=== PATIENT | female | born 1990 | race Two or more races ===

== ENCOUNTER 2025-07-24 01:06 | Emergency (ER) | payer MEDICAID, SELFPAY ==
[2025-07-24 01:09] VITALS: BMI 37.8
[2025-07-24 02:06] VITALS: BP 147/98; PULSE 93; RESP 19; TEMP 36.7; O2SAT 98
--- NOTE | 2025-07-24 02:11 | XR_ITS ---
Examination: Pelvic ultrasound, transabdominal, complete Technique: Transabdominal ultrasound of the pelvis performed using grayscale imaging Date and time of exam: July 24, 2025, 0310 hours INDICATIONS: Onset right pelvic pain today FINDINGS: Uterus 9.3 cm endometrial stripe 0.5 cm No uterine mass or intrauterine gestation Right ovary 3.3 cm arterial flow Left ovary obscured by bowel gas IMPRESSION: No uterine mass or intrauterine gestation
--- NOTE | 2025-07-24 02:12 | PD.EDABDPN ---
ED Abdominal Pain RME/HPI General Chief Complaint: Abdominal Pain Stated complaint: RIGHT LOWER ABD PAIN RADIATING TO BACK Time seen by provider: 07/24/25 02:10 Arrival date/time: 07/24/25 01:06 RME / HPI RME / HPI narrative: See [facility] for Dr. Watt's HPI Documentation. Related Data Previous Rx's ?Medication ?Instructions ?Recorded cetirizine 10 mg tablet (Zyrtec) 10 mg PO QDAY #30 tabs 05/19/22 sodium chloride 0.65 % nasal spray 2 spray intranasal QID PRN nasal 05/19/22 aerosol (Saline Nasal) congestion #88 mL fluconazole 150 mg tablet 150 mg PO QDAY #1 tab 08/06/22 (Diflucan) fluconazole 150 mg tablet 150 mg PO .x1 #1 tab 09/06/22 (Diflucan) ondansetron HCl 4 mg tablet 4 mg PO QDAY PRN nausea and 09/06/22 vomiting #10 tabs fexofenadine 180 mg tablet 180 mg PO QDAY #30 tabs 04/25/24 (Madhuri Allergy) pseudoephedrine HCl 30 mg tablet 30 mg PO Q8HR PRN nasal congestion 04/25/24 #20 tabs cefdinir 300 mg capsule 300 mg PO BID #14 caps 07/24/25 Allergies Allergy/AdvReac Type Severity Reaction Status Date / Time No Known Allergies Allergy Verified 07/24/25 01:08 Review of Systems Review of Systems Systems Reviewed: All systems reviewed, normal except as documented Past Medical History Past Medical History GASTROINTESTINAL: Positive Gastrointestinal Disorders Surgical History SURGICAL: Positive Section ED Exam Narrative Physical exam: See [facility] for Dr. Watt's Physical Exam Documentation. Course Quality Measures none Orders Category Date Time Status Saline [Insert IV] NOW Care 07/24/25 02:11 Completed US pelvic complete Stat Exams 07/24/25 02:11 Completed Bilirubin,Direct Stat Lab 07/24/25 02:17 Completed CBC Stat Lab 07/24/25 02:17 Completed CMP [Comprehensive Metabolic Panel] Stat Lab 07/24/25 02:17 Completed HCG,Qualitative Serum Stat Lab 07/24/25 02:17 Completed Magnesium Stat Lab 07/24/25 02:17 Completed TSH [Thyroid Stimulating Hormone] Stat Lab 07/24/25 02:17 Completed UA, C/S IF [Urinalysis, C/S if Indicated] Stat Lab 07/24/25 02:46 Completed Urine Culture Stat Lab 07/24/25 02:46 Completed Ketorolac Inj [Toradol Inj] Med 07/24/25 02:11 Discontinued 30 mg IVP X1 ONE Ondansetron Inj [Zofran Inj] Med 07/24/25 02:11 Discontinued 4 mg IVP X1 ONE Sodium Chloride 0.9% 1000 ml [Ns] 1,000 ml Med 07/24/25 02:11 Discontinued IV 999 mls/hr cefTRIAXone/D5w 1gm IV premix [Rocephin/D5w 1gm IV Med 07/24/25 03:55 Discontinued premix] 1 gm in 50 ml IV X1 Vital Signs Vital signs: Vital Signs Temperature 98.1 F 07/24/25 02:06 Pulse Rate 93 07/24/25 02:06 Respiratory Rate 19 07/24/25 02:06 Blood Pressure 147/98 H 07/24/25 02:06 Pulse Oximetry (%) 98 07/24/25 02:06 Oxygen Delivery Method Room Air 07/24/25 02:06 Abdominal Pain MDM MDM Narrative MDM Narrative:: This section includes all my notes and documentations, including HPI, PE, and ED course. Loe Watt MD HPI: 34 y/o female presents with right sided lower abdominal pain for a couple of days. No fever or chills. Occasional nausea. Some urinary frequency. No hematuria. No other complaints. ROS: All negative except as documented in HPI. Physical Exam: General: Alert and oriented. No acute distress when remaining still. Eyes: Conjunctivae and lids clear. ENT: No nasal congestion. Neck: Supple. Heart: RRR. Lungs: No respiratory distress. Good air movement. No rhonchi, wheezing, rales. Abdomen: Soft with equivocal right sided pelvic tenderness. Normal bowel sounds. No distension. No rebound or guarding. Back: No CVA tenderness. Skin: Warm and dry. Neuro: Alert and oriented X 3. I reviewed all diagnostic test results: My review of the Pelvis US report is NAD. Blood tests are unremarkable. UA showed positive leukocyte esterase, 6 RBC, 16 WBC, and Bacteria. At this point, diagnoses include: UTI Ovarian Cyst Treatment here included: IVF Toradol 30 mg IV Zofran 4 mg IV Rocephin 1 gram IV She felt much better. Recommended outpatient treatment. Based on my best medical judgment, made decision no further evaluation or treatment indicated at this time. Patient understands and agrees to the discharge instructions customized and printed, see below. Discharge instructions from Dr. Watt: 1. After evaluation, you have UTI (see attached handout). 2. Take cefdinir to kill the germs causing the infection. 3. For good hydration, increase oral fluid and maintain clear urine. If dark or yellow, increase oral fluid. 4. You also have ovarian cyst. -- In young females, it is normal to have ovarian cysts (sacs of fluid) that come and go depending on the menstruation.? If a cyst ruptures, it can cause pain until your body reabsorbs the fluid. Large cysts can also cause pain. -- Apply ice or heat if helpful.? Tylenol/ibuprofen as needed. 5. See a private doctor on 07/26/2025 for recheck. Ask to review all test results and official radiology reports, to make sure you receive all necessary follow-ups and monitoring, including final urine culture results from today. Ask for a referral to see advertising [employer] to evaluate your ovarian cysts. 6. Seek immediate medical care with worsening, fever, or with any concerns. Leo Watt MD Patient data External records reviewed:: [facility] previous records (Reviewed prior ED records from 04/25/24. Patient was seen for Acute dysfunction of left eustachian tube.) Clinical information provided by:: patient Social determinants that could affect healthcare access:: none Patient has the following chronic illnesses:: None reported. How is presenting disease/condition affected by chronic disease/condition?: no chronic disease Evaluation data The following diagnostics were reviewed and interpreted by me:: lab results and radiology exam(s) Lab and/or radiology exams considered but not ordered:: None Interpretation Summary: I reviewed all diagnostic test results: My review of the Pelvis US report is NAD. Blood tests are unremarkable. UA showed positive leukocyte esterase, 6 RBC, 16 WBC, and Bacteria. Medications / Prescriptions Medications or Prescriptions considered but not ordered:: None Medication administrations:: Medication Administration History Discontinued Medications Sodium Chloride (Ns) 1,000 mls @ 999 mls/hr IV .Q1H1M ONE Stop: 07/24/25 03:11 Last Infusion: 07/24/25 04:09 Dose: Infused Documented By: Admin: 07/24/25 02:42 Dose: 999 mls/hr Documented By: ALEXANDRE Ceftriaxone Sodium/Dextrose (Rocephin/D5w 1gm Iv Premix) 1 gm in 50 mls @ 100 mls/hr IV X1 ONE Stop: 07/24/25 04:24 Last Infusion: 07/24/25 04:47 Dose: Infused Documented By: Admin: 07/24/25 04:14 Dose: 100 mls/hr Documented By: KYA Ketorolac Tromethamine (Ketorolac Inj 30 Mg/Ml Vial) 30 mg IVP X1 ONE Stop: 07/24/25 02:12 Last Admin: 07/24/25 02:41 Dose: 30 mg Documented By: ALEXANDRE Ondansetron HCl (Ondansetron Inj 2 Mg/Ml Inj 2 Ml) 4 mg IVP X1 ONE; Protocol Stop: 07/24/25 02:12 Last Admin: 07/24/25 02:42 Dose: 4 mg Documented By: ALEXANDRE Treatment here included: IVF Toradol 30 mg IV Zofran 4 mg IV Rocephin 1 gram IV Consultations Consultation(s) initiated? (list below): No Diagnosis Differential diagnosis abdominal pain: constipation, endometriosis, gastroenteritis and other (UTI, Cystitis, Pyelonephritis) Most likely diagnosis given after review of the tests above:: UTI Ovarian Cyst Admission Indicated Admission indicated?: not indicated Explain why admission is indicated or not indicated:: With significant improvement and no condition needing emergent intervention, there was no indication for admission. Admission Request Was there a request for admission?: No Disposition Plan Disposition Plan: Discharge Discharge Attestation Discharge Attestation: The patient and all family members were given an opportunity to ask questions and understood the discharge instructions. Discharge instructions specifically effects, indications for sooner follow up or return to the emergency department, and the expected course of current diagnosis. Patient condition: Stable Discharge Plan Plan Patient Disposition: HOME (Self Care) Prescriptions/Referrals Prescriptions/Med Rec: New cefdinir 300 mg capsule 300 mg PO BID Qty: 14 0RF No Action cetirizine [Zyrtec] 10 mg tablet 10 mg PO QDAY Qty: 30 0RF Saline Nasal 0.65 % aerosol,spray 2 spray intranasal QID PRN (Reason: nasal congestion) Qty: 88 0RF ondansetron HCl 4 mg tablet 4 mg PO QDAY PRN (Reason: nausea and vomiting) Qty: 10 0RF fluconazole [Diflucan] 150 mg tablet 150 mg PO .x1 Qty: 1 0RF Rx Instructions: Take after finishing antibiotics. Don't take while taking zofran fluconazole [Diflucan] 150 mg tablet 150 mg PO QDAY Qty: 1 0RF fexofenadine [Madhuri Allergy] 180 mg tablet 180 mg PO QDAY Qty: 30 0RF pseudoephedrine HCl 30 mg tablet 30 mg PO Q8HR PRN (Reason: nasal congestion) Qty: 20 0RF Problem List Clinical Impression: UTI (urinary tract infection), Ovarian cyst Patient/Caregiver Discharge Instructions Discharge Activity: activity as tolerated Education Materials: ED Ovarian Cyst, ED CYSTITIS Female Adult Additional Instructions: Discharge instructions from Dr. Watt: 1. After evaluation, you have UTI (see attached handout). 2. Take cefdinir to kill the germs causing the infection. 3. For good hydration, increase oral fluid and maintain clear urine. If dark or yellow, increase oral fluid. 4. You also have ovarian cyst. -- In young females, it is normal to have ovarian cysts (sacs of fluid) that come and go depending on the menstruation.? If a cyst ruptures, it can cause pain until your body reabsorbs the fluid. Large cysts can also cause pain. -- Apply ice or heat if helpful.? Tylenol/ibuprofen as needed. 5. See a private doctor on 07/26/2025 for recheck. Ask to review all test results and official radiology reports, to make sure you receive all necessary follow-ups and monitoring, including final urine culture results from today. Ask for a referral to see advertising [employer] to evaluate your ovarian cysts. 6. Seek immediate medical care with worsening, fever, or with any concerns. Print Language: Bulgarian Stand Alone Forms: Margret Award Info., Patient Portal Info Letter
[2025-07-24 02:36] LABS: Basophils # (Auto) 0.1 Thou/mm3 (0.0-0.2); Basophils % (Auto) 1 % (0-2.5); Eosinophils # (Auto) 0.2 Thou/mm3 (0.0-0.5); Eosinophils % (Auto) 2 % (0-10); Hematocrit 39.7 % (36.0-46.0); Hemoglobin 13.8 g/dL (12.0-16.0); Immature Granulocytes Auto 0.03 Thou/mm3 (0.00-0.00); Lymphocytes # (Auto) 2.6 Thou/mm3 (1.0-4.8); Lymphocytes % (Auto) 31 % (10-50); Mean Corpuscular HGB Conc 34.8 g/dl (31.0-37.0); Mean Corpuscular Hemoglobin 29.6 pg (25.0-35.0); Mean Corpuscular Volume 85 fL (80-100); Monocytes # (Auto) 0.8 Thou/mm3 (0.0-0.8); Monocytes % (Auto) 9 % (0-12); Neutrophils # (Auto) 4.9 Thou/mm3 (1.8-7.7); Neutrophils % (Auto) 57 % (37-80); Nucleated Red Blood Cell # 0.00 Thou/mm3 (0.00-0.00); Nucleated Red Blood Cell % 0 /100 WBC (0); Platelet Count 246 Thou/mm3 (140-440); RDW Standard Deviation 39.9 fL (36.4-46.3); Red Blood Count 4.66 Miln/mm3 (4.00-5.20); White Blood Count 8.6 Thou/mm3 (3.6-11.0)
[2025-07-24] MEDS: KETOROLAC INJ 30 MG/ML VIAL IVP (02:41)
[2025-07-24] MEDS: SODIUM CHLORIDE 0.9% 1000 ML 1,000 ML 999 ML IV (02:42)
[2025-07-24] MEDS: ONDANSETRON INJ 2 MG/ML INJ 2 ML 4 MG IVP (02:42)
[2025-07-24 02:44] VITALS: BP 147/98; PULSE 82; RESP 18; TEMP 36.7; O2SAT 96
[2025-07-24 02:46] LABS: HCG,Qualitative Serum Negative
[2025-07-24 02:57] LABS: Alanine Aminotransferase 34 U/L (10-49); Albumin, Serum 4.4 gm/dL (3.5-5.0); Albumin/Globulin Ratio 1.6 (1.2-2.2); Alkaline Phosphatase 80 U/L (46-116); Anion Gap 11 (7-16); Aspartate Amino Transferase 23 U/L (0-34); BUN/Creatinine Ratio 9 Ratio (12-20); Bilirubin,Direct 0.1 mg/dL (0.0-0.3); Bilirubin,Total 0.4 mg/dL (0.3-1.2); Blood Urea Nitrogen 8 mg/dL (9-23); Calcium 8.8 mg/dL (8.3-10.6); Calcium (Corrected) 8.8 mg/dL (8.5-10.1); Carbon Dioxide 25.7 mMol/L (20.0-31.0); Chloride 107 mMol/L (98-107); Creatinine (Component) 0.9 mg/dL (0.6-1.3); Estimated Creatinine Clearance 103.0 mL/min (>60); Globulin 2.8 gm/dL (2.3-3.5); Glucose 122 mg/dL (74-106); Magnesium 2.0 mg/dL (1.6-2.6); Osmolality,Calculated 286 (275-295); Potassium 3.5 mMol/L (3.4-5.1); Sodium 144 mMol/L (136-145); Thyroid Stimulating Hormone 0.97 uIU/mL (0.55-4.78); Total Protein 7.2 gm/dL (5.7-8.2); eGFR > 60 See Note
[2025-07-24 03:17] LABS: Collection Type, Urine Clean Catch
[2025-07-24 03:35] LABS: Amorphous Crystals,Urine Present (Absent); Bacteria,Urine Rare; Bilirubin,Urine Negative (Negative); Blood,Urine Negative (Negative); Clarity,Urine Clear (Clear/Hazy); Color,Urine Lt-Yellow (Lt Yel-Yel); Glucose, Urine Negative (Negative); Hyaline Casts,Urine < 1 /hpf (0-1); Ketones,Urine Negative (Negative); Leukocyte Esterase,Urine Positive (Negative); Nitrite,Urine Negative (Negative); PH,Urine 6.5 (5.0-7.0); Protein,Urine Trace (Neg - Trace); RBC,Urine 6 /hpf (0-3); Specific Gravity,Urine 1.027 (1.001-1.035); Squamous Epithelial Cell,Urine 4 /hpf (0-5); Urobilinogen,Urine Negative mg/dL (0.0-1.0); WBC,Urine 16 /hpf (0-5)
[2025-07-24 03:36] LABS: Culture Indicated,Urine Yes
[2025-07-24] MEDS: cefTRIAXone/D5w 1gm IV premix 1 GM/50 ML BAG IV (04:14)
--- NOTE | 2025-07-24 04:43 | PRELIM_ITS ---
Pelvic ultrasound (transabdominal) with Doppler and wave Doppler spectral analysis. July 24, 2025 0310 hours Clinical history: Right pelvic pain. Technique: Real-time, grayscale, transabdominal pelvic ultrasound was performed using Duplex scanning including arterial inflow, venous outflow, color and spectral Doppler. Comparison: None available at the time of this report. Findings: The uterus is normal in size measuring 9.3 x 5.2 x 5.7 cm. Cystic lesions in the body of the uterus measure 1.2 x 1.0 x 1.1 cm and 1.2 x 1.6 x 1.2 cm. The endometrium is unremarkable and measures 0.5 cm. The right ovary measures 3.3 x 2.4 x 2.8 cm and is unremarkable. The left ovary is not visualized. The right ovary demonstrates color flow and spectral waveforms on Doppler evaluation. There is no adnexal mass. There is no free fluid on the submitted images. Impression: Cystic lesions in the body of the uterus, consider correlation with MRI for further evaluation. The left ovary is not visualized, consider correlation with MRI, if clinically indicated. No evidence of right ovarian torsion. Report Electronically Signed By: Gennaro Briscoe 07/24/2025 4:42:51 AM [EST]
[2025-07-24 04:48] VITALS: BP 136/86; PULSE 57; RESP 18; TEMP 36.7; O2SAT 98
== END 2025-07-24 04:50 | disposition home or self-care (01) ==
LOC: SERX 04:48
PROVIDERS: Emergency Provider Emergency Medicine; PCP Internal Medicine
DX: N39.0 Urinary tract infection, site not specified (principal); N83.209 Unspecified ovarian cyst, unspecified side
CPT/HCPCS: 36415; 76856; 80053; 81001; 82248; 83735; 84443; 84703; 85025; 87077; 87086; 87186; 96361; 96365; 96375; 99284; J0696; J1885; J2405; J7030